=== PATIENT | female | born 1985 | race Caucasian/White ===

== ENCOUNTER 2017-11-23 02:09 | Observation (INO) | payer OTHER ==
[~2017-11-23] VITALS: Ht 167 cm; Wt 74.0 kg
[2017-11-23] MEDS ORDERED: PRENATALVIT PO (03:44)
[2017-11-23 03:46] VITALS: BP 98/56
[2017-11-23] MEDS ORDERED: [UNRECOGNIZED DRUG - CODE] PO (03:46)
[2017-11-23] MEDS ORDERED: folic acid PO (03:46)
== END 2017-11-23 05:45 | disposition home or self-care (01) ==
LOC: 4S 02:09
PROVIDERS: ADMIT Obstetrics & Gynecology; ATTEND Obstetrics & Gynecology
DX: O62.9 Abnormality of forces of labor, unspecified (principal); Z3A.38 38 weeks gestation of pregnancy
CPT/HCPCS: 59025; G0378

== ENCOUNTER 2017-12-01 19:23 | Inpatient (IN) | payer OTHER ==
[~2017-12-01] VITALS: Ht 167 cm; Wt 73.5 kg
[~2017-12-01 19:23] MED LIST: PRENATALVIT PO; [UNRECOGNIZED DRUG - CODE] PO; folic acid PO
[2017-12-01 20:14] VITALS: BP 106/55
[2017-12-01] MEDS ORDERED: RINGERS SOLUTION,LACTATED 1,000 ML IV PRN (22:58)
[2017-12-01] MEDS ORDERED: OXYTOCIN 30 UNITS/LACT RINGERS 500 ML IV ONE (22:58)
[2017-12-01] MEDS ORDERED: FentaNYL CITRATE-PF 100 MCG/2 ML VIAL IVP PRN (23:00)
[2017-12-01] MEDS ORDERED: CITRIC ACID/SODIUM CITRATE 30 ML SOLUTION UDCUP PO PRN (23:00)
[2017-12-01] MEDS ORDERED: LIDOCAINE/PF 1% 30 ML VIAL INJ PRN (23:00)
[2017-12-01] MEDS ORDERED: METOCLOPRAMIDE HCL 5 MG/ML 2 ML VIAL IVP PRN (23:00)
[2017-12-01] MEDS ORDERED: LIDOCAINE/PF 2% 5 ML VIAL ONE ×2 (23:10→23:39)
[2017-12-01] MEDS ORDERED: ROPIVACAINE HCL/PF 0.2% 100 ML ED ONE (23:10)
[2017-12-01] MEDS ORDERED: ROPIVACAINE HCL/PF 0.2% 100 ML ED PRN (23:34)
[2017-12-01] MEDS: RINGERS SOLUTION,LACTATED 1,000 ML IV SCH (23:36)
[2017-12-01] MEDS ORDERED: FentaNYL CITRATE-PF 100 MCG/2 ML VIAL ONE (23:39)
[2017-12-01 23:42] LABS: BASOPHILS % (AUTO) 0.2 % (0.0-2.0); EOSINOPHILS % (AUTO) 1.6 % (1.0-6.0); HEMATOCRIT 31.2 % (36-46); LYMPHOCYTES # (AUTO) 3.2 K/uL (1.0-4.8); LYMPHOCYTES % (AUTO) 30.1 % (22.0-44.0); MEAN CORPUSCULAR HEMOGLOBIN 36.6 pg (26.0-34.0); MEAN CORPUSCULAR HGB CONC 35.3 G/dL (31.0-37.0); MEAN CORPUSCULAR VOLUME 104 fL (80-100); MONOCYTES # (AUTO) 0.8 K/uL (0.1-1.0); NEUTROPHILS # (AUTO) 6.3 K/uL (1.8-7.7); NEUTROPHILS % (AUTO) 60.1 % (40.0-70.0); PLATELET COUNT (AUTO)-OB 294 K/uL (150-450); RED BLOOD CELL COUNT(AUTO) 3.01 MIL/uL (4.00-5.20); RED CELL DISTRIBUTION WIDTH 13.2 % (11.5-14.5)
[2017-12-01] MEDS ORDERED: DiphenhydrAMINE HCL 50 MG/ML VIAL IVP PRN (23:45)
[2017-12-01] MEDS ORDERED: NALBUPHINE HCL 10 MG/ML VIAL IVP PRN (23:45)
[2017-12-01] MEDS ORDERED: ONDANSETRON HCL 4 MG/2 ML VIAL IVP PRN (23:45)
[2017-12-02] MEDS ORDERED: OXYTOCIN 30 UNITS/LACT RINGERS 500 ML IV PRN (03:28)
[2017-12-02] MEDS: RINGERS SOLUTION,LACTATED 1,000 ML IV SCH (04:16)
[2017-12-02] MEDS ORDERED: ROPIVACAINE HCL/PF 0.2% 100 ML ED ONE (07:06)
[2017-12-02] MEDS ORDERED: OXYGEN THERAPY IH SCH (08:00)
[2017-12-02] MEDS ORDERED: OXYTOCIN 30 UNITS/LACT RINGERS 500 ML IV ONE (15:20)
[2017-12-02] MEDS ORDERED: LANOLIN 7 GM OINTMENT TP PRN (15:30)
[2017-12-02] MEDS ORDERED: LIDOCAINE/PF 1% 30 ML VIAL INJ PRN (15:30)
[2017-12-02] MEDS ORDERED: OxyCODONE HCL/ACETAMINOPHEN 5-325 MG TABLET PO PRN (15:30)
[2017-12-02] MEDS ORDERED: GLYCERIN/WITCH HAZEL LEAF 40 PADS JAR TP PRN (15:30)
[2017-12-02] MEDS ORDERED: BENZOCAINE 20%/MENTHOL 56 GM SPRAY CANISTER TP PRN (15:30)
[2017-12-02] MEDS ORDERED: MAGNESIUM HYDROXIDE SUSPENSION 30 ML UDCUP PO PRN (15:30)
[2017-12-02] MEDS: IBUPROFEN 800 MG TABLET PO PRN (15:56)
[2017-12-02] MEDS: OxyCODONE HCL/ACETAMINOPHEN 5-325 MG TABLET PO PRN ×2 (17:10→21:11)
[2017-12-03] MEDS: IBUPROFEN 800 MG TABLET PO PRN ×2 (02:33→12:39)
[2017-12-03 05:42] LABS: EOSINOPHILS % (AUTO) 1.6 % (1.0-6.0); HEMATOCRIT 28.6 % (36-46); LYMPHOCYTES # (AUTO) 2.8 K/uL (1.0-4.8); LYMPHOCYTES % (AUTO) 20.4 % (22.0-44.0); MEAN CORPUSCULAR HEMOGLOBIN 36.4 pg (26.0-34.0); MEAN CORPUSCULAR VOLUME 104 fL (80-100); MONOCYTES % (AUTO) 7.5 % (2.0-9.0); NEUTROPHILS # (AUTO) 9.7 K/uL (1.8-7.7); NEUTROPHILS % (AUTO) 70.5 % (40.0-70.0); PLATELET COUNT (AUTO)-OB 242 K/uL (150-450); RED BLOOD CELL COUNT(AUTO) 2.75 MIL/uL (4.00-5.20)
[2017-12-03] MEDS ORDERED: IBUP-2071 PO (13:19)
[2017-12-03] MEDS ORDERED: FERR-89 PO (13:20)
[2017-12-03] MEDS ORDERED: DSS100 PO (13:20)
== END 2017-12-03 13:45 | disposition home or self-care (01) | DRG 775 ==
LOC: 4S 19:23 → OBSVTOIN 22:57
PROVIDERS: ADMIT Obstetrics & Gynecology; ATTEND Obstetrics & Gynecology
PROC: 0HQ9XZZ Repair Perineum Skin, External Approach (ICD-10-PCS; principal; 2017-12-02)
PROC: 10E0XZZ Delivery of Products of Conception, External Approach (ICD-10-PCS; 2017-12-02)
PROC: 3E0R3BZ Introduction of Anesthetic Agent into Spinal Canal, Percutaneous Approach (ICD-10-PCS; 2017-12-02)
PROC: 00HU33Z Insertion of Infusion Device into Spinal Canal, Percutaneous Approach (ICD-10-PCS; 2017-12-02)
DX: O76 Abnormality in fetal heart rate and rhythm complicating labor and delivery (principal); O71.4 Obstetric high vaginal laceration alone; O77.0 Labor and delivery complicated by meconium in amniotic fluid; Z3A.40 40 weeks gestation of pregnancy; Z37.0 Single live birth
CPT/HCPCS: 86850; 86900; 86901; J2590; J2795; J3010; J3490; J7120